=== PATIENT | female | born 1985 | race African-American/Black ===

== ENCOUNTER 2018-03-08 11:24 | Emergency (ER) | payer MEDICAID, OTHER ==
[~2018-03-08] VITALS: Ht 157.5 cm; Wt 56.7 kg
[2018-03-08] MEDS ORDERED: LORazepam 2MG/ML-1ML VIAL IV ONE (12:00)
[2018-03-08] MEDS ORDERED: LIDOCAINE 1%HCL (LOCAL ANESTH) 10 ML MDV ONE (12:58)
[2018-03-08] MEDS ORDERED: BACITRACIN TOP OINT 1 UD PKG TOP ONE (13:30)
[2018-03-08] MEDS ORDERED: LIDOCAINE 1% HCL (LOCAL ANESTH.) INJ 20ML MDV ID ONE (13:30)
[2018-03-08] MEDS ORDERED: BACITRACIN INJ 50000 UNIT VIAL TOP ONE (13:30)
[2018-03-08 13:40] VITALS: BP 122/71
== END 2018-03-08 14:06 | disposition home or self-care (01) ==
LOC: EDBD 11:24 → ER 11:24
DX: S01.81XA Laceration without foreign body of other part of head, initial encounter (principal); S06.0X0A Concussion without loss of consciousness, initial encounter; M79.641 Pain in right hand; V48.5XXA Car driver injured in noncollision transport accident in traffic accident, initial encounter; Y93.89 Activity, other specified; Y99.8 Other external cause status; Y92.410 Unspecified street and highway as the place of occurrence of the external cause
CPT/HCPCS: 12011; 70450; 70486; 72125; 73120; 96374; 99284; J2001; J2060